=== PATIENT | male | born 1990 | race Caucasian/White ===

== ENCOUNTER 2021-01-05 15:53 | Emergency (ER) | payer OTHER, BC ==
[~2021-01-05] VITALS: Ht 175.3 cm; Wt 68.0 kg
[~2021-01-05 15:53] MED LIST: CEPH500 PO; CYCL10 PO; HYDACE5 PO; IBUP800 PO; NAPR500 PO; OXYACE5T PO; RXCYCL10 PO; RXHYDACE PO
[2021-01-05] MEDS ORDERED: HYDR1TAB94 PO (16:37)
== END 2021-01-05 16:59 | disposition home or self-care (01) ==
LOC: ER 15:53
DX: S42.022A Displaced fracture of shaft of left clavicle, initial encounter for closed fracture (principal); Z23 Encounter for immunization; V86.56XA Driver of dirt bike or motor/cross bike injured in nontraffic accident, initial encounter
CPT/HCPCS: 73000; 90471; 90714; 99283-25; A9270-GY

== ENCOUNTER 2021-01-10 08:51 | Day surgery (SDC) | payer BC ==
[~2021-01-10] VITALS: Ht 172 cm; Wt 71.9 kg
[~2021-01-10 08:51] MED LIST changes: +HYDR1TAB94 PO
--- NOTE | 2021-01-10 10:12 | NUR ---
Ambulatory in Day Surgery History, Chart, Medications and Allergies reviewed before start of procedure.Patient confirms NPO status and agrees with scheduled surgery. Surgical site prepped with 2% Chlorhexidine cloth wipe.
--- NOTE | 2021-01-10 14:07 | NUR ---
Discharge instructions reviewed with patient. Patient verbalizes understanding. Copy given to patient to take home. DRESSING HAS SMALL AMOUNT OF DRAINAGE, NO CHANGES UPON DISCHARGE. Discharged via wheelchair to private car for ride home.
--- NOTE | 2021-01-11 09:23 | NUR ---
01/11/21 0923 Sharon Jacobs VERIFICATIONS: EDIT CHART.
== END 2021-01-10 14:10 | disposition home or self-care (01) ==
LOC: ORSCMMR 08:51 → ORD 10:00 → ORSCMMR 10:00
PROVIDERS: Orthopaedic Surgery
PROC: 0PSB04Z Reposition Left Clavicle with Internal Fixation Device, Open Approach (ICD-10-PCS; principal; 2021-01-10 10:00)
DX: S42.022A Displaced fracture of shaft of left clavicle, initial encounter for closed fracture (principal); F17.220 Nicotine dependence, chewing tobacco, uncomplicated
CPT/HCPCS: C1713; J0171; J0690; J1100; J1885; J2250; J2405; J2704; J3010; J7120

== ENCOUNTER → 2022-12-22 | Outpatient (CLI) | payer BC | END | disposition home or self-care (01) | LOC: LAB 14:00 → LAB SHORT 14:00 | DX: K92.0 Hematemesis (principal) | CPT/HCPCS: 87338 ==

== ENCOUNTER 2023-10-27 08:55 | Day surgery (SDC) | payer BC ==
[~2023-10-27] VITALS: Ht 172.7 cm; Wt 76.3 kg
[~2023-10-27 08:55] MED LIST changes: +Lactated Ringer's 1,000 ML IV ONE; +propofoL 50 ML IV ONE
[2023-10-27] MEDS ORDERED: OMEP20ER (09:06)
[2023-10-27] MEDS ORDERED: Lactated Ringer's 1,000 ML IV ONE (09:12)
[2023-10-27 10:17] VITALS: BP 108/79
== END 2023-10-27 10:16 | disposition home or self-care (01) ==
LOC: ORSCSDS 08:55
PROVIDERS: Specialist
PROC: 0DB58ZX Excision of Esophagus, Via Natural or Artificial Opening Endoscopic, Diagnostic (ICD-10-PCS; principal; 2023-10-27 10:00)
PROC: 0DB68ZX Excision of Stomach, Via Natural or Artificial Opening Endoscopic, Diagnostic (ICD-10-PCS; principal; 2023-10-27 10:00)
DX: K21.9 Gastro-esophageal reflux disease without esophagitis (principal); K44.9 Diaphragmatic hernia without obstruction or gangrene; K22.10 Ulcer of esophagus without bleeding; Z87.891 Personal history of nicotine dependence
CPT/HCPCS: 88305; 88342; J2704; J7120